=== PATIENT | male | born 1970 | race American Indian/Alaskan Native ===

== ENCOUNTER 2023-01-10 20:42 | Emergency (ER) | payer MEDICAID ==
[2023-01-10 21:06] LABS: BASOPHILS ABSOLUTE AUTO 0.02 K/uL (0.00-0.20); BASOPHILS PERCENT AUTO 0.2 % (0.0-2.0); EOSINOPHILS ABSOLUTE AUTO 0.01 K/uL (0.00-0.50); EOSINOPHILS PERCENT AUTO 0.1 % (0.0-5.0); HEMATOCRIT 36.4 % (39.0-49.0); HEMOGLOBIN 12.2 g/dL (13.1-16.8); LYMPHOCYTES PERCENT AUTO 16.3 % (10.0-50.0); MEAN CORPUSCULAR HEMOGLOBIN 26.3 pg (28.2-33.3); MEAN CORPUSCULAR HGB CONC 33.5 g/dL (31.7-36.0); MEAN CORPUSCULAR VOLUME 78.6 fL (84.0-98.0); MONOCYTES ABSOLUTE AUTO 0.85 K/uL (0.00-1.00); MONOCYTES PERCENT AUTO 9.2 % (2.0-14.0); NEUTROPHILS ABSOLUTE AUTO 6.81 K/uL (1.40-7.00); NEUTROPHILS PERCENT AUTO 74.2 % (45.0-80.0); PLATELET COUNT,PLT 312 K/uL (150-350); RED BLOOD CELL COUNT 4.63 M/uL (4.33-5.41); RED CELL DISTRIBUTION WIDTH 14.8 % (11.2-14.1); WHITE BLOOD CELL COUNT,WBC 9.2 K/uL (4.0-10.2)
[2023-01-10 21:27] LABS: ALANINE AMINOTRANSFERASE,ALT 73 U/L (12-78); ALBUMIN 2.6 g/dL (3.4-5.0); ALKALINE PHOSPHATASE 116 IU/L (46-116); ASPARTATE AMNIOTRANSFERASE,AST 51 U/L (15-37); BILIRUBIN TOTAL 0.7 mg/dL (0.2-1.0); BLOOD UREA NITROGEN,BUN 12 mg/dL (7-18); CALCIUM 8.6 mg/dL (8.5-10.1); CHLORIDE,CL 99 mmol/L (98-107); GLUCOSE RANDOM 132 mg/dL (70-99); POTASSIUM,K 3.5 mmol/L (3.5-5.1); SODIUM,NA 135 mmol/L (136-145)
[2023-01-10 21:29] LABS: ANION GAP 11.5 meq/L (7-15); ESTIMATED GFR 102 mL/min (>=60)
[2023-01-10] MEDS ORDERED: oxyCODONE 5 MG Tab PO ONE (21:42)
== END 2023-01-10 23:20 ==
LOC: LL.ED 20:42
DX: M25.511 Pain in right shoulder (principal); M53.3 Sacrococcygeal disorders, not elsewhere classified; I10 Essential (primary) hypertension; E78.00 Pure hypercholesterolemia, unspecified; I25.10 Atherosclerotic heart disease of native coronary artery without angina pectoris; Z79.899 Other long term (current) drug therapy; Z88.8 Allergy status to other drugs, medicaments and biological substances; W06.XXXA Fall from bed, initial encounter
CPT/HCPCS: 36415; 72220; 73030-RT; 80053; 85025; 99284; A9270-GY

== ENCOUNTER 2023-07-27 18:25 | Emergency (ER) | payer MEDICAID ==
[2023-07-27] MEDS: Ketorolac 30 MG/ML SDV IM ONE (19:06)
== END 2023-07-27 19:26 | disposition home or self-care (01) ==
LOC: LL.ED 18:25
DX: M54.50 Low back pain, unspecified (principal); G89.29 Other chronic pain; I25.10 Atherosclerotic heart disease of native coronary artery without angina pectoris; E78.00 Pure hypercholesterolemia, unspecified; I10 Essential (primary) hypertension; Z88.8 Allergy status to other drugs, medicaments and biological substances; Z79.899 Other long term (current) drug therapy
CPT/HCPCS: 72100; 96372; 99283; J1885

== ENCOUNTER 2023-09-04 14:13 | Emergency (ER) | payer MEDICAID ==
[2023-09-04] MEDS: Take Home: Orphenadrine 100 MG Tab.ER, 4 Tab Pack PO ONE (15:13)
== END 2023-09-04 15:55 ==
LOC: LL.ED 14:13
DX: M54.41 Lumbago with sciatica, right side (principal); M54.42 Lumbago with sciatica, left side; M62.830 Muscle spasm of back; G89.29 Other chronic pain; I10 Essential (primary) hypertension; I25.10 Atherosclerotic heart disease of native coronary artery without angina pectoris; E78.00 Pure hypercholesterolemia, unspecified; Z79.899 Other long term (current) drug therapy; Z88.8 Allergy status to other drugs, medicaments and biological substances
CPT/HCPCS: 96374; 99283-25; 99284; A9270-GY; J3360